=== PATIENT | female | born 1985 | race American Indian/Alaskan Native ===

== ENCOUNTER 2021-02-01 13:02 | Emergency (ER) | payer OTHER ==
[2021-02-01 13:16] VITALS: BP 103/66
--- NOTE | 2021-02-01 15:06 | Event Note ---
ED Screening Note Date of service: 02/01/21 Time: 15:03 ED Screening Note: 35-year-old female patient presents to emergency department with complaints of painful vaginal bleeding starting yesterday. Last menstrual period was January 09. Symptoms began with lower abdominal pain yesterday, which subsided. The bleeding has persisted since her pain resolved. States she has gone through 2 tampons so far today. First progressed without complications. She has not taken a test since her pain and bleeding began. She does state that she has been trying to become . She called her SCHOOL COMMISSIONER this morning, who told her to come to the emergency department for further evaluation. She is also reporting dizziness and a headache. No preceding trauma. General: Awake, appropriately interactive, no acute distress. Neck: Supple. Full range of motion intact. Cardiovascular: Normal peripheral perfusion. Pulmonary: No respiratory distress. Patient is speaking normally without use of accessory muscles. Abdomen: Soft, nondistended. Diffuse lower abdominal tenderness. Skin: No apparent rashes or lesions. Neurological: No facial asymmetry. Speech is clear. Follows commands. Patient is alert and oriented. Musculoskeletal: Moves all four extremities spontaneously with normal range of motion. Psych: Cooperative. Appropriate mood and affect. I have greeted and performed a focused rapid initial assessment of this patient. A comprehensive ED assessment and evaluation of the patient, analysis of all test results, and completion of the medical decision-making process will be conducted by additional ED providers. This initial assessment/diagnostic orders/clinical plan/treatment(s) is/are subject to change based on patients health status, clinical progression and re-assessment. Further treatment and workup at subsequent clinical provider's discretion. Patient/guardian urged not to elope from the ED as their condition may be serious if not clinically assessed and managed.
[2021-02-01 15:25] LABS: Basophils % (Auto) 0.5 % (0.0-1.8); Eosinophils % (Auto) 0.5 % (0.0-4.3); Hematocrit 39.7 % (30.3-42.9); Hemoglobin 13.6 gm/dl (10.1-14.3); Lymphocytes # (Auto) 2.1 K/mm3 (1.2-5.4); Lymphocytes % (Auto) 43.4 % (13.4-35.0); Mean Corpuscular HGB Conc 34 % (30-34); Mean Corpuscular Volume 94 fl (79-97); Monocytes # (Auto) 0.5 K/mm3 (0.0-0.8); Monocytes % (Auto) 9.4 % (0.0-7.3); Platelet Count 234 K/mm3 (140-440); Red Blood Count 4.25 M/mm3 (3.65-5.03)
[2021-02-01 15:35] LABS: INR 1.01 (0.87-1.13)
[2021-02-01 15:36] LABS: Partial Thromboplastin Time 30.3 Sec. (24.2-36.6)
[2021-02-01 15:45] LABS: Alanine Aminotransferase 9 units/L (7-56); Albumin 4.4 g/dL (3.9-5); Blood Urea Nitrogen 11 mg/dL (7-17); Calcium 9.5 mg/dL (8.4-10.2); Hemolysis Index 7
[2021-02-01 15:52] LABS: BUN/Creatinine Ratio 16
[2021-02-01 16:05] LABS: Bilirubin,Urine NEG (Negative); Blood,Urine LG (Negative); Color,Urine Amber (Yellow); Mucus,Urine 3+ /HPF; Urobilinogen,Urine < 2.0 mg/dL (<2.0)
[2021-02-01 16:06] LABS: RBC,Urine > 182.0 /HPF (0.0-6.0)
--- NOTE | 2021-02-01 17:09 | Ultrasound Report ---
ULTRASOUND PELVIS INDICATION / CLINICAL INFORMATION: lower abd pain/bleeding; HCG < 2. Dysfunctional uterine bleeding. TECHNIQUE: Transvaginal. Duplex Color Doppler used: Yes. COMPARISON: None available FINDINGS: UTERUS: - Appearance: No acute abnormality. - Size (cm): 6.2 x 5.3 x 5.0 - Endometrial Complex (if present): No significant abnormality.. Thickness in cm (if measured) = 0.4 - Mass or cyst: Several hypoechoic/heterogeneous fibroids within the uterus with the largest in the f undus measuring 3.9 x 3.4 x 4.1 cm. - Additional findings: None. RIGHT ADNEXA: No significant ovarian cyst or mass. Normal color Doppler blood flow. LEFT ADNEXA: No significant ovarian cyst or mass. Normal color Doppler blood flow. URINARY BLADDER: No significant abnormality. FREE FLUID: None. ADDITIONAL FINDINGS: None. IMPRESSION: 1. Several uterine fibroids with the largest measuring 4.1 cm in the fundus. 2. No acute sonographic abnormality of the pelvis. Signer Name: Mima Raygoza MD Signed: 02/01/2021 5:05 PM Workstation Name: [id number]
--- NOTE | 2021-02-01 20:32 | Emergency Department Report ---
ED General Adult HPI - General Chief complaint: Vaginal Bleeding Stated complaint: VAGINAL BLEEDING Time Seen by Provider: 02/01/21 20:18 Source: patient Mode of arrival: Ambulatory Limitations: No Limitations - History of Present Illness Initial comments: 35-year-old female patient presents to emergency department with complaints of painful vaginal bleeding starting yesterday. Last menstrual period was January 09. Symptoms began with lower abdominal pain yesterday, which subsided. The bleeding has persisted since her pain resolved. States she has gone through 2 tampons so far today. First progressed without complications. She h as not taken a test since her pain and bleeding began. She does state that she has been trying to become . She called her BRAZING MACHINE OPERATOR HELPER this morning, who told her to come to the emergency department for further evaluation. Denies fever, chills, nausea, vomiting, diarrhea, rectal bleeding, vaginal discharge, urinary symptoms. Denies all other complaints at this time. - Related Data Allergies Allergy/AdvReac Type Severity Reaction Status Date / Time No Known Allergies Allergy Unverified 02/01/21 19:29 ED Review of Systems ROS: Stated complaint: VAGINAL BLEEDING Other details as noted in HPI Other: GENERAL: Negative for fever, chills, weight change, anorexia, fatigue. ENT: Negative for ear pain, difficulty hearing, sore throat, nasal congestion, epistaxis. CARDIOVASCULAR: Negative for chest pain, palpitations, lower extremity swelling. PULMONARY: Negative for cough, dyspnea, wheezing, orthopnea, cyanosis. GASTROINTESTINAL: Positive for pelvic pain. GENITOURINARY: Positive for vaginal bleeding MUSCULOSKELETAL: Negative for joint pain, joint swelling, myalgias, back pain, neck pain. NEUROLOGICAL: Negative for headache, seizure, syncope, paresthesias, weakness. INTEGUMENTARY: Negative for erythema, rash, diaphoresis, laceration, ecchymosis. HEMATOLOGICAL: Negative for hemoptysis, hematemesis, hematochezia, hematuria. PSYCHIATRIC: Negative for hallucinations, suicidal ideation, homicidal ideation, anxiety, depression. ED Past Medical Hx - Past Medical History Previous Medical History?: No - Surgical History Past Surgical History?: No ED Physical Exam - General Limitations: No Limitations - Other Other exam information: General: Awake, appropriately interactive, no acute distress. Neck: Supple. Full range of motion intact. Cardiovascular: Normal peripheral perfusion. Pulmonary: No respiratory distress. Patient is speaking normally without use of accessory muscles. Abdomen: Soft, non-distended. Diffuse lower abdominal tenderness without guarding, rebound, or rigidity. Bowel sounds present. Pelvic: Female carpenter ship (Jaycee) present. Normal external inspection. Cervical os is closed. There is no cervical motion tenderness. There is a small amount of blood in the vaginal vault. No discharge. No adnexal tenderness or masses. Mild uterine tenderness. Skin: No apparent rashes or lesions. Neurological: No facial asymmetry. Speech is clear. Follows commands. Patient is alert and oriented. Musculoskeletal: Moves all four extremities spontaneously with normal range of motion. Psych: Cooperative. Appropriate mood and affect. ED Course Vital Signs 02/01/21 13:12 Temperature 98.4 F Pulse Rate 82 Respiratory 16 Rate Blood Pressure 103/66 [Right] O2 Sat by Pulse 100 Oximetry ED Medical Decision Making - Lab Data Result diagrams: 02/01/21 15:10 02/01/21 15:10 - Radiology Data [facility] [address] [place] [address] Ultrasound Report Signed Patient: TAI SULTANA MR#: [id number] : 1985 Acct:[id number] Age/Sex: 35 / F ADM Date: 02/01/21 Loc: ED Attending Dr: Ordering Physician: RO KILLIAN Date of Service: 02/01/21 Procedure(s): US transvaginal Accession Number(s): [id number] cc: RO KILLIAN ULTRASOUND PELVIS INDICATION / CLINICAL INFORMATION: lower abd pain/bleeding; HCG < 2. Dysfunctional uterine bleeding. TECHNIQUE: Transvaginal. Duplex Color Doppler used: Yes. COMPARISON: None available FINDINGS: UTERUS: - Appearance: No acute abnormality. - Size (cm): 6.2 x 5.3 x 5.0 - Endometrial Complex (if present): No significant abnormality.. Thickness in cm (if measured) = 0.4 - Mass or cyst: Several hypoechoic/heterogeneous fibroids within the uterus with the largest in the fundus measuring 3.9 x 3.4 x 4.1 cm. - Additional findings: None. RIGHT ADNEXA: No significant ovarian cyst or mass. Normal color Doppler blood flow. LEFT ADNEXA: No significant ovarian cyst or mass. Normal color Doppler blood flow. URINARY BLADDER: No significant abnormality. FREE FLUID: None. ADDITIONAL FINDINGS: None. IMPRESSION: 1. Several uterine fibroids with the largest measuring 4.1 cm in the fundus. 2. No acute sonographic abnormality of the pelvis. Signer Name: Mima Raygoza MD Signed: 02/01/2021 5:05 PM Workstation Name: [id number] Transcribed By: DT Dictated By: Jorge Raygoza MD Electronically Authenticated By: Jorge Raygoza MD Signed Date/Time: 02/01/211704 DD/ 00 TD/TT: - Medical Decision Making Differential diagnosis including but not limited to: ectopic , intrauterine , implantation bleed, threatened , uterine fibroids, endometriosis, uterine rupture, anemia On reevaluation, patient remains stable. Vital signs within normal limits. test is negative. Labs are unremarkable. Transvaginal ultrasound shows multiple large uterine fibroids. Pelvic exam reveals closed cervical os with small amount of blood in the vaginal vault. Patient's hemoglobin is stable, she does not appear to be actively hemorrhaging. Patient will be discharged home to follow-up with her money position officer as previously scheduled. Patient was advised to discuss her struggles with fertility with her money position officer in light of today's ultrasound findings. Patient expressed un derstanding and is agreeable to plan of care. Strict return precautions provided. Repeat exam is unremarkable and benign. History, exam, diagnostic testing, and current condition do not suggest worrisome pathology to warrant further testing, continued ED treatment, admission, or surgical evaluation at this point. Given the low probability of a significant medical illness, it would be more likely to result in harm than benefit to perform further testing at this stage. Discussed findings, presumptive diagnosis, need for follow-up and specific signs/symptoms that should prompt immediate return to the emergency department. Instructions were explained in detail to the patient in addition to giving written discharge information. Patient expressed understanding and was given the opportunity to ask questions, all of which were satisfactorily answered prior to discharge home. Critical care attestation.: If time is entered above; I have spent that time in minutes in the direct care of this critically ill patient, excluding procedure time. ED Disposition Clinical Impression: Uterine fibroid Qualifiers: Uterine leiomyoma location: unspecified location Qualified Code(s): D25.9 - Leiomyoma of uterus, unspecified Disposition: DC-01 TO HOME OR SELFCARE Is pt being admited?: No Does the pt Need Aspirin: No Condition: Stable Instructions: Uterine Fibroids, [id number] Additional Instructions: Rest. Drink plenty fluids. Follow-up with your money position officer this week. Call tomorrow to schedule an appointment. Return to the emergency department immediately for new or worsening symptoms. Specifically, return to the emergency department immediately for dizziness, weakness, loss of consciousness, worsening bleeding, abdominal pain, or any other concerns. Referrals: BRIAN BRADFORD MD [Staff Physician] - 3-5 Days Time of Disposition: 20:32
== END 2021-02-01 23:00 | disposition home or self-care (01) ==
LOC: ED 13:02
DX: D25.9 Leiomyoma of uterus, unspecified (principal)
CPT/HCPCS: 36415; 76830; 80053; 81001; 83735; 84702; 85025; 85610; 85730; 86900; 86901; 87086

== ENCOUNTER 2021-11-21 02:23 | Emergency (ER) | payer OTHER ==
[2021-11-21] MEDS ORDERED: SODIUM CHLORIDE 0.9% 1000 ML 1,000 ML IV ONE (03:00)
[2021-11-21] MEDS ORDERED: FAMOTIDINE 20 MG/2 ML INJ IV ONE (03:00)
[2021-11-21] MEDS ORDERED: LIDOCAINE VISCOUS 2% 15 ML ORAL LIQD PO ONE (03:00)
[2021-11-21] MEDS ORDERED: ALUM-MAG HYDROXIDE-SIMETHICONE 200-200-20MG/5ML ORAL LIQD 30 ML PO ONE (03:00)
[2021-11-21] MEDS ORDERED: PROCHLORPERAZINE EDISYLATE 10 MG/2 ML VIAL IV ONE (03:00)
[2021-11-21 03:12] LABS: Basophils % (Auto) 0.4 % (0.0-1.8); Eosinophils % (Auto) 0.3 % (0.0-4.3); Hematocrit 38.4 % (30.3-42.9); Hemoglobin 12.8 gm/dl (10.1-14.3); Lymphocytes % (Auto) 35.1 % (13.4-35.0); Mean Corpuscular HGB Conc 33 % (30-34); Mean Corpuscular Volume 91 fl (79-97); Monocytes # (Auto) 0.7 K/mm3 (0.0-0.8); Monocytes % (Auto) 11.4 % (0.0-7.3); Platelet Count 240 K/mm3 (140-440); Red Blood Count 4.22 M/mm3 (3.65-5.03); Red Cell Distribution Width 12.2 % (13.2-15.2)
[2021-11-21 03:26] LABS: Alanine Aminotransferase 13 units/L (7-56); Albumin 4.4 g/dL (3.9-5); Blood Urea Nitrogen 10 mg/dL (7-17); Calcium 9.8 mg/dL (8.4-10.2); Hemolysis Index 5
[2021-11-21 03:30] LABS: BUN/Creatinine Ratio 14
--- NOTE | 2021-11-21 04:45 | Emergency Department Report ---
ED N/V/D HPI - General Chief complaint: Nausea/Vomiting/Diarrhea Stated complaint: VOMITING/ABD PAIN ( 7 WEEKS) Source: patient Mode of arrival: Ambulatory Limitations: No Limitations - History of Present Illness Initial comments: Patient is a A0 36-year-old -Tongan female with no past medical history and who is approximately 7 weeks gestation who presents to the ED with intractable nausea and vomiting for the last 1 week, worse in the last 3 days. Patient also complains of suprapubic pain. Patient states that she has not been able to keep anything down for the last 3 days due to intractable nausea and vomiting. Patient states that she is currently feeling lightheaded and fatigued as well as generalized weakness. Patient denies diarrhea, dysuria, urinary frequency and urgency, vaginal bleeding, low back pain, chest pain, shortness of breath, headache, sore throat, nasal and sinus congestion, fever and chills. MD complaint: nausea, vomiting, other (Suprapubic pain) -: Sudden, days(s) (3) Description of Vomiting: food contents, watery, bilious Associated Abdominal Pain: Yes (diffuse) Location: diffuse Radiation: none Severity: moderate Pain Scale: 3 Quality: aching, dull Consistency: constant Improves with: none Worsens with: eating, vomiting Context: other (Hyperemesis gravidarum) Associated Symptoms: denies other symptoms, loss of appetite, malaise, nausea/vomiting, weakness. denies: myalgias, chest pain, cough, diaphoresis, fever/chills, headaches, rash, dysuria, shortness of breath, syncope - Related Data Previous Rx's Medication Instructions Recorded Last Taken Type Acetaminophen [Tylenol] 500 mg PO Q6HR PRN #40 tablet 11/21/21 Unknown Rx Famotidine [Pepcid] 20 mg PO BID #60 tablet 11/21/21 Unknown Rx Metoclopramide [Reglan] 10 mg PO Q8H PRN #30 tab 11/21/21 Unknown Rx Promethazine [Phenergan] 25 mg PO Q8HR PRN #15 tab 11/21/21 Unknown Rx Allergies Allergy/AdvReac Type Severity Reaction Status Date / Time No Known Allergies Allergy Unverified 02/01/21 19:29 ED Review of Systems ROS: Stated complaint: VOMITING/ABD PAIN ( 7 WEEKS) Other details as noted in HPI Constitutional: denies: chills, fever Eyes: denies: eye pain, eye discharge, vision change ENT: denies: ear pain, throat pain Respiratory: denies: cough, shortness of breath, wheezing Cardiovascular: denies: chest pain, palpitations Endocrine: no symptoms reported Gastrointestinal: abdominal pain, nausea, vomiting. denies: diarrhea Genitourinary: denies: urgency, dysuria, discharge Musculoskeletal: denies: back pain, joint swelling, arthralgia Skin: denies: rash, lesions Neurological: denies: headache, weakness, paresthesias Psychiatric: denies: anxiety, depression Hematological/Lymphatic: denies: easy bleeding, easy bruising ED Past Medical Hx - Past Medical History Previous Medical History?: No - Surgical History Past Surgical History?: No - Social History Smoking Status: Never Smoker Substance Use Type: None - Medications Home Medications: Home Medications Medication Instructions Recorded Confirmed Last Taken Type Acetaminophen [Tylenol] 500 mg PO Q6HR PRN #40 tablet 11/21/21 Unknown Rx Famotidine [Pepcid] 20 mg PO BID #60 tablet 11/21/21 Unknown Rx Metoclopramide [Reglan] 10 mg PO Q8H PRN #30 tab 11/21/21 Unknown Rx Promethazine [Phenergan] 25 mg PO Q8HR PRN #15 tab 11/21/21 Unknown Rx ED Physical Exam - General Limitations: No Limitations General appearance: alert, in no apparent distress - Head Head exam: Present: atraumatic, normocephalic, normal inspection - Eye Eye exam: Present: normal appearance, PERRL, EOMI Pupils: Present: normal accommodation - ENT ENT exam: Present: normal exam, normal orophraynx, mucous membranes moist, TM's normal bilaterally, normal external ear exam - Neck Neck exam: Present: normal inspection, full ROM - Respiratory Respiratory exam: Present: normal lung sounds bilaterally. Absent: respiratory distress, wheezes, rales, rhonchi, chest wall tenderness, accessory muscle use, decreased breath sounds, prolonged expiratory - Cardiovascular Cardiovascular Exam: Present: regular rate, normal rhythm, normal heart sounds. Absent: systolic murmur, diastolic murmur, rubs, gallop - GI/Abdominal GI/Abdominal exam: Present: soft, normal bowel sounds. Absent: distended, tenderness, guarding, rebound, hyperactive bowel sounds, hypoactive bowel sounds, organomegaly - Extremities Exam Extremities exam: Present: normal inspection, full ROM, normal capillary refill - Back Exam Back exam: Present: normal inspection, full ROM. Absent: tenderness, CVA tenderness (R), muscle spasm, paraspinal tenderness, vertebral tenderness - Neurological Exam Neurological exam: Present: alert, oriented X3, CN II-XII intact, normal gait, reflexes normal - Psychiatric Psychiatric exam: Present: normal affect, normal mood - Skin Skin exam: Present: warm, dry, intact, normal color. Absent: rash ED Course Vital Signs 11/21/21 02:29 Temperature 98.5 F Pulse Rate 74 Respiratory 18 Rate Blood Pressure 95/66 O2 Sat by Pulse 100 Oximetry ED Medical Decision Making - Lab Data Result diagrams: 11/21/21 02:53 11/21/21 02:53 - Medical Decision Making This is a A0 36-year-old -Tongan female with no past medical history and who is approximately 7 weeks gestation who presents to the ED with intractable nausea and vomiting for the last 1 week, worse in the last 3 days. Patient also complains of suprapubic pain. Patient states that she has not been able to keep anything down for the last 3 days due to intractable nausea and vomiting. Patient states that she is currently feeling lightheaded and fatigued as well as generalized weakness. In the ED, patient is alert and oriented x3 and is not in any distress. Patient was treated in the ED with antiemetics, also given 1 L normal saline IV bolus x1. Patient was also treated with Tylenol for pain and also given antacids. Lab test results were reviewed and are [place] [address]. Urinalysis is unremarkable with no sign of UTI. On reevaluation, patient felt better, patient passed oral fluid challenge in the ED. patient's pain is well controlled medication. Patient will discharge home on pain medications, vitamins, antiemetics and antacids and advised to follow-up with her DUTY ENGINEER physician in 5 to 7 days for ree valuation. Patient was advised return to the ED immediately if symptoms get worse. - Differential Diagnosis Hyperemesis gravidarum; dehydration; UTI; GERD; Critical care attestation.: If time is entered above; I have spent that time in minutes in the direct care of this critically ill patient, excluding procedure time. ED Disposition Clinical Impression: Hyperemesis gravidarum, Nausea and vomiting during Disposition: 01 HOME / SELF CARE / HOMELESS Is pt being admited?: No Does the pt Need Aspirin: No Condition: Stable Instructions: Nausea and Vomiting, Adult, [id number], Hyperemesis Gravidarum Additional Instructions: All lab test results were reviewed and are all nonactionable. Therefore maintain a clear liquid diet for 12 to 24 hours, drink plenty of fluids, take medication as needed for pain, take medicine for nausea and vomiting and the antacids prescribed. Follow-up with your DUTY ENGINEER physician in 5 to 7 days for reevaluation. Return to the ED immediately if symptoms get worse. Prescriptions: Acetaminophen [Tylenol] 500 mg PO Q6HR PRN #40 tablet PRN Reason: Pain , Severe (7-10) Famotidine [Pepcid] 20 mg PO BID #60 tablet Promethazine [Phenergan] 25 mg PO Q8HR PRN #15 tab PRN Reason: Nausea Metoclopramide [Reglan] 10 mg PO Q8H PRN #30 tab PRN Reason: Nausea And Vomiting Referrals: FADIA CLARKE MD [Staff Physician] - 3-5 Days Forms: Work/School Release Form(ED) Time of Disposition: 05:17 Print Language: JAPANESE
[2021-11-21 04:47] LABS: Bacteria,Urine 1+ /HPF (Negative); Bilirubin,Urine NEG (Negative); Blood,Urine NEG (Negative); Color,Urine Amber (Yellow); Mucus,Urine 3+ /HPF; Urobilinogen,Urine < 2.0 mg/dL (<2.0)
[2021-11-21 05:39] VITALS: BP 101/64
== END 2021-11-21 05:39 | disposition home or self-care (01) ==
LOC: ED 02:23
DX: O21.1 Hyperemesis gravidarum with metabolic disturbance (principal); O21.9 Vomiting of pregnancy, unspecified; Z3A.01 Less than 8 weeks gestation of pregnancy
CPT/HCPCS: 36415; 80053; 81001; 84702; 85025; 96361; 96374; 96375; 99283; J0780; J3490; J7030; Q0162